=== PATIENT | male | born 1940 | race Asian ===

== ENCOUNTER 2017-01-27 07:39 | Observation (INO) | payer OTHER, BC ==
[2017-01-27] MEDS ORDERED: LIDOCAINE 1% 2 ML INJ ID PRN (08:09)
[2017-01-27] MEDS ORDERED: LR 1,000 ML IV ONE (08:09)
[2017-01-27 09:09] VITALS: PULSE 60
[2017-01-27] MEDS ORDERED: ceFAZolin 2 GM/SWFI 2 GM/20 ML SYR IVP ONE (10:13)
--- NOTE | 2017-01-27 10:27 | PDHPUP ---
History & Physical Update H&P update statement: This history and physical update is based on an assessment of the patient which was completed after admission or registration (within 24 hours), but prior to the surgery/procedure. H&P update: H&P reviewed & patient examined, no change in patient's condition since H&P completed (patient had breakfast at 05:15/surgery will be delayed to allow for gastric emptying)
[2017-01-27] MEDS ORDERED: LR 1,000 ML IV SCH (10:30)
[2017-01-27] MEDS ORDERED: ceFAZolin 2 GM/SWFI 20 ML SYR IVP ONE (13:35)
--- NOTE | 2017-01-27 14:01 | PDANEPAE ---
ANE History of Present Illness R Inguinal Hernia ANE Past Medical History - Cardiovascular History Hx Hypertension: Yes Hx Arrhythmias: No Hx Chest Pain: No Hx Coronary Artery / Peripheral Vascular Disease: Yes Hx CHF / Valvular Disease: No Hx Palpitations: No Cardiovascular History Comment: CARDIOMYOPATHY - Pulmonary History Hx COPD: No Hx Asthma/Reactive Airway Disease: No Hx Recent Upper Respiratory Infection: No Hx Oxygen in Use at Home: No Hx Sleep Apnea: Yes Sleep Apnea Screening Result - Last Documented: Positive Pulmonary History Comment: CHELE USES C-PAP - Neurologic History Hx Cerebrovascular Accident: No Hx Seizures: No Hx Dementia: No - Endocrine History Hx Diabetes: No - Renal History Hx Renal Disorders: No Renal History Comment: NOCTURIA - Liver History Hx Hepatic Disorders: No - Neurological & Psychiatric Hx Hx Neurological and Psychiatric Disorders: No - Cancer History Hx Cancer: No - Congenital Disorder History Hx Congenital Disorders: No - GI History Hx Gastrointestinal Disorders: No - Other Health History Other Health History: GLAUCOMA - Chronic Pain History Chronic Pain: Yes (RT ING HERNIA) - Surgical History Prior Surgeries: LT CATARACT. PACEMAKER 2010. GABG. LT ACL REPAIR. 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 Pacemaker Model: [id number] Date Pacemaker Last Checked: 10/05/2016 ANE Patient History - Allergies Allergies/Adverse Reactions: diphenhydramine Allergy (Verified 01/20/17 12:21) Hives Influenza Virus Vaccines Allergy (Verified 01/20/17 12:21) Fever - Home Medications Home Medications: Aspirin [Aspirin 325 mg (*)] 325 mg PO DAILY 01/20/17 [Last Taken 01/21/17] Bisoprolol Fumarate [Zebeta (*)] 5 mg PO HS 01/20/17 [Last Taken 01/26/17] Brinzolamide/Brimonidine Tart [Simbrinza 1%-0.2% Eye Drops] 1 drp LEFTEYE BID [Last Taken 01/27/17 05:45] Cholecalciferol Vit D3 [Vitamin D3 (*)] 4,000 units PO DAILY 01/20/17 [Last Taken 01/27/17 05:45] Fluorometholone [Fml Forte] 1 drp EACHEYE DAILY 01/20/17 [Last Taken 01/27/17 05 :45] Lisinopril [Zestril 2.5 mg (*)] 2.5 mg PO HS 01/20/17 [Last Taken 01/26/17] Simvastatin [Zocor] 40 mg PO HS 01/20/17 [Last Taken 01/26/17] Travoprost Z 0.004% [Travatan Z 0.004% (*)] 1 drops EACHEYE HS 01/20/17 [Last Taken 01/26/17] - NPO status NPO Since - Liquids (Date): 01/27/17 NPO Since - Liquids (Time): 05:15 NPO Since - Solids (Date): 01/27/17 NPO Since - Solids (Time): 05:15 - Smoking Hx Smoking Status: Never smoked ANE Labs/Vital Signs - Vital Signs Blood Pressure: 141/82 Heart Rate: 60 Respiratory Rate: 16 O2 Sat (%): 95 Height: 168.91 cm Weight: 53.524 kg ANE Physical Exam - Airway Mallampati Score: Class 2 - Pulmonary Pulmonary: clear to auscultation - Cardiovascular Cardiovascular: regular rate and rhythym - ASA Status ASA Status: III ANE Anesthesia Plan Anesthesia Plan: general endotracheal anesthesia
[2017-01-27] MEDS ORDERED: BUPIVACAINE/EPI 0.5% 30 ML SDV ONE (14:21)
[2017-01-27] MEDS ORDERED: PROPOFOL 200 MG/20 ML VIAL ONE (14:21)
[2017-01-27] MEDS ORDERED: LIDOCAINE 1% 300 MG/30 ML SDV ONE (14:21)
[2017-01-27] MEDS ORDERED: fentaNYL 100 MCG/2 ML INJ ONE ×2 (14:22→15:05)
[2017-01-27] MEDS ORDERED: HYDROCODONE/APAP 5/325 TAB PO PRN (14:26)
[2017-01-27] MEDS ORDERED: NALOXONE HCL 0.4 MG/ML INJ IVP PRN (14:26)
[2017-01-27] MEDS ORDERED: ACETAMINOPHEN 500 MG TAB PO PRN (14:26)
[2017-01-27] MEDS ORDERED: ONDANSETRON 4 MG/2 ML VIAL IVP PRN ×2 (14:26→15:36)
[2017-01-27] MEDS ORDERED: fentaNYL 100 MCG/2 ML INJ IVP PRN (14:26)
[2017-01-27] MEDS ORDERED: DEXAMETHASONE 4 MG/ML VIAL ONE (14:34)
[2017-01-27] MEDS ORDERED: ONDANSETRON 4 MG/2 ML VIAL ONE (14:34)
--- NOTE | 2017-01-27 15:32 | POSTANESTH ---
Post Anesthetic Evaluation Cardiovascular Status: Normal, Stable Respiratory Status: Normal, Stable Level of Consciousness/Mental Status: Can Participate in Eval, Mildly Sleepy, Arousable Pain Control: Adequate, Prn Tx Ordered Nausea/Vomiting Control: Adequate, Prn Tx Ordered
--- NOTE | 2017-01-27 15:35 | POSTOPPROG ---
Post Op Note Date of Operation: 01/27/17 Surgeon: Lul Le (, FACS) Income Tax Return Preparer: Lynn Maciel, PAS-3 Anesthesiologist: Harpreet Pascal DO Anesthesia: GET(General Endotracheal) Pre-op Diagnosis: right inguinal hernia Post-op Diagnosis: same + cord lipoma Procedure: open repair RIH (Darnell) Inf/Abcess present in the surg proc area at time of surgery?: No Specimen(s): cord lipoma
[2017-01-27] MEDS ORDERED: ACETAMINOPHEN 325 MG TAB PO PRN (15:36)
[2017-01-27] MEDS ORDERED: KETOROLAC 15 MG/1 ML SDV IVP PRN (17:14)
[2017-01-27] MEDS: traMADol 50 MG TAB PO PRN (20:41)
--- NOTE | 2017-01-27 23:27 | GOP ---
[f rep st] OPERATIVE REPORT DATE OF OPERATION: 01/27/2017 SURGEON: Lul Le MD, FACS ADAPTIVE PHYSICAL EDUCATOR: АЛЕКСАНДР Lam ANESTHESIA: General endotracheal. ANESTHESIOLOGIST: Harpreet Pascal DO PREOPERATIVE DIAGNOSIS: Right inguinal hernia. POSTOPERATIVE DIAGNOSIS: Direct right inguinal hernia and cord lipoma. PROCEDURE PERFORMED: Open repair right inguinal hernia and resection of cord lipoma (Darnell procedure). FINDINGS: Direct inguinal hernia with small cord lipoma. No evidence of indirect hernia sac. ESTIMATED BLOOD LOSS: 10 mL. DESCRIPTION OF PROCEDURE: After informed consent was obtained, the patient was brought to the operating room and placed under general anesthesia. The right groin was prepped and draped in the usual fashion. Before proceeding, a time- out and identification of the patient was performed. 0.25% Marcaine plain was used to establish a regional field block. An oblique incision was made over the inguinal canal and carried through skin and subcutaneous tissue. Superficial veins were clamped, divided, and ligated with 2-0 Vicryl ligatures. External oblique fascia was incised in the direction of its fibers. The genitofemoral nerve was protected in the course of dissection and mobilized along with the cord structures from the inguinal floor. The patient had a moderate size direct inguinal hernial defect and no evidence of indirect sac within the cord. The cord lipoma was from the cord. Clamped, divided, and ligated with 2-0 Vicryl ligatures. The specimen was removed from the field. The inguinal floor was reconstructed with a piece of polypropylene mesh cut to an appropriate shape and sutured to the inguinal ligament starting at the pubic tubercle medially and extending to the internal ring laterally. Here, the mesh was split in a keyhole fashion around the cord and was secured to itself and the inguinal ligament with interrupted 0 Nurolon sutures. Medially and superiorly the mesh was secured to the fascia with interrupted 0 Nurolon sutures. Laterally the mesh was tucked between the external oblique and internal oblique fascias. Upon completion, the repair was intact without undue tension and hemostasis appeared secure. The cord structures and the genitofemoral nerve were returned to their anatomic position. The external oblique fascia was closed over the inguinal floor with continuous running 3-0 Monocryl suture. Subcutaneous tissues and Justin fascia were approximated with 3-0 Monocryl suture. Skin was closed with 4-0 Monocryl suture in a subcuticular fashion. Mastisol and Steri-Strips were applied. Needle, sponge, and instrument count were correct. COMPLICATIONS: None. /[id number]/MODL MTDD
[2017-01-27 23:57] VITALS: RESP 18
[2017-01-28 05:01] VITALS: BP 104/54; TEMP 98; O2SAT 95
[2017-01-28] MEDS: traMADol 50 MG TAB PO PRN (08:34)
--- NOTE | 2017-01-28 09:58 | ASMTCMCOM ---
CM Note CM Note Notes: Spoke w/RN, anticipate pt will dc home w/support of when medically stable. CM available for any changes. Date Signed: 01/28/2017 09:58 AM Electronically Signed By:Blanca Quiroz RN
--- NOTE | 2017-01-28 10:03 | PDDCSUM ---
Discharge Summary Discharge Summary: DSD # S MD Mimi, FACS
--- NOTE | 2017-01-28 14:08 | GDS ---
[f rep st] DISCHARGE SUMMARY DISCHARGE DIAGNOSES: 1. Right inguinal hernia. 2. Ischemic cardiomyopathy with indwelling pacemaker. 3. History of hypertension. 4. Coronary artery disease. PROCEDURE PERFORMED: Open repair right inguinal hernia, 01/27. HOSPITAL COURSE: For details of admission history and physical please see dictated summary and consu ltation notes from [facility] EMR in the patient's scanned documents. Briefly, the patien caitlin is a 76-year-old male with symptomatic hernia and multiple medical problems, who is admitted for el ective right inguinal hernia repair. He is admitted overnight for cardiac monitoring. His pacemaker was disabled during the procedure, and he had no arrhythmias, either intraoperatively or postoperati vely. He was restarted on his aspirin and had no signs of bleeding postoperatively. He was mildly n auseated shortly after surgery, was given small doses of Toradol 7.5 mg IV q.6 hours p.r.n. pain and tramadol 50 mg p.o. q.6 hours p.r.n. pain. Nausea resolved. He was advanced in his diet. He was ab le to ambulate and void without requiring catheterization. DISCHARGE MEDICATIONS: Patient will resume his previous medicines including Zebeta 5 mg p.o. at bedt fabi, Zocor 40 mg p.o. at bedtime, Zestril 2.5 mg p.o. at bedtime, aspirin 325 mg p.o. daily, vitamin D3 4000 units p.o. daily, and his previously prescribed eyedrops. Additionally, the patient was give n a prescription for tramadol 50 mg q.6 hours p.r.n. pain, #30, to be used sparingly for pain as need ed. We discussed activity, wound care and follow up in my office in the upcoming week. CONDITION AT TIME OF DISCHARGE: Satisfactory. Copy requested to: Dr. Nehemiah Cotter /[id number]/MODL
--- NOTE | 2017-01-28 15:04 | ASDISCHSUM ---
Discharge Information Plan Status:Home with No Needs Medically Cleared to Leave: Discharge Date:01/28/2017 11:05 AM CM D/C Disposition:Home, Routine, Self-Care ADT D/C Disposition:Home, Routine, Self-Care Projected Discharge Date:01/28/2017 11:05 AM Transportation at D/C: Discharge Delay Reason: Follow-Up Date:01/28/2017 11:05 AM Discharge Slot: Final Diagnosis: Placement Information Patient Contact Information Contact Name:NOHELIA Relationship: Address:[address] [facility] Work Phone: City:[place] Alternate Phone: [facility]/Zip Code:[place] [address] Email: Financial Information Financial Class: Primary Plan Desc:MEDICARE OUTPATIENT Primary Plan Number:[id number] Secondary Plan Desc: OUT OF STATE [facility] Secondary Plan Number:[id number] Assessment Information [facility] CM Progress Note CM Note CM Note Notes: Spoke w/RN, anticipate pt will dc home w/support of when medically stable. CM available for any changes. Date Signed: 01/28/2017 09:58 AM Electronically Signed By:Blanca Quiroz RN Intervention Information
== END 2017-01-28 11:05 | disposition home or self-care (01) ==
LOC: F3E 07:39
PROVIDERS: ADMIT Surgery; ATTEND Surgery
PROC: 0VBF0ZZ Excision of Right Spermatic Cord, Open Approach (ICD-10-PCS; principal; 2017-01-27 09:45)
PROC: 0YQ50ZZ Repair Right Inguinal Region, Open Approach (ICD-10-PCS; principal; 2017-01-27 09:45)
DX: K40.90 Unilateral inguinal hernia, without obstruction or gangrene, not specified as recurrent (principal); D17.6 Benign lipomatous neoplasm of spermatic cord; I25.5 Ischemic cardiomyopathy; Z95.0 Presence of cardiac pacemaker; I25.10 Atherosclerotic heart disease of native coronary artery without angina pectoris
CPT/HCPCS: 49505; 55520; C1781; J0690; J1100; J1885; J2405; J2704; J3010